=== PATIENT | female | born 1930 | race African-American/Black ===

== ENCOUNTER 2017-01-08 00:59 | Emergency (ER) | payer OTHER, MEDICAID ==
[~2017-01-08] VITALS: Ht 157.5 cm; Wt 77.0 kg
[2017-01-08] MEDS ORDERED: HYDROCODONE/ACETAMINOPHEN 5/325MG TABLET PO ONE (02:00)
[2017-01-08 03:38] VITALS: BP 152/86
== END 2017-01-08 05:17 | disposition home or self-care (01) ==
LOC: ER 01:02
DX: M25.511 Pain in right shoulder (principal); M79.89 Other specified soft tissue disorders; E78.00 Pure hypercholesterolemia, unspecified; I25.10 Atherosclerotic heart disease of native coronary artery without angina pectoris; F03.90 Unspecified dementia, unspecified severity, without behavioral disturbance, psychotic disturbance, mood disturbance, and anxiety; M25.521 Pain in right elbow; I11.9 Hypertensive heart disease without heart failure; I51.9 Heart disease, unspecified; W19.XXXA Unspecified fall, initial encounter; Y93.89 Activity, other specified; Y92.89 Other specified places as the place of occurrence of the external cause; Y99.8 Other external cause status
CPT/HCPCS: 73030; 73060; 73080; 93005; 99284